=== PATIENT | female | born 1970 | race Caucasian/White ===

== ENCOUNTER 2018-11-08 08:55 | Emergency (ER) | payer BC ==
[2018-11-08 09:24] LABS: EOS # 0.1 (0.04-0.40); EOS % 0.9 % (1.0-5.0); HEMATOCRIT 39.1 % (37.0-47.0); HEMOGLOBIN 13.1 g/dL (12.5-16.0); LYMPH# 1.6 (1.50-4.00); MEAN CELL VOLUME 96 fl (78-100); MEAN CORPUSCULAR HEMOGLOBIN 32 pg (27-31); MEAN CORPUSCULAR HGB CONC 34 g/dL (33-37); MEAN PLATELET VOLUME 11.8 fl (7.4-10.4); MONO # 0.4 (0.20-0.80); NEU # 3.2 (1.40-6.50); PLATELET COUNT 193 K/mm3 (130-400); RED BLOOD COUNT 4.09 M/mm3 (4.10-5.30); RED CELL DISTRIBUTION WIDTH 13.7 % (11.5-14.5); WHITE BLOOD COUNT 5.3 K/mm3 (4.8-10.8)
[2018-11-08 09:34] LABS: ALBUMIN 3.9 g/dL (3.5-5.0)
[2018-11-08 09:35] LABS: POTASSIUM 3.2 mmol/L (3.5-5.1)
[2018-11-08 09:36] LABS: CALCIUM 9.2 mg/dL (8.3-10.5)
[2018-11-08 09:37] LABS: TOTAL PROTEIN 6.8 g/dL (6.4-8.3)
[2018-11-08 09:39] LABS: TOTAL BILIRUBIN 0.5 mg/dL (0.2-1.2)
[2018-11-08 10:00] LABS: URINE APPEARANCE CLEAR; URINE BILIRUBIN NEGATIVE (NEGATIVE); URINE BLOOD NEGATIVE (NEGATIVE); URINE COLOR YELLOW; URINE GLUCOSE NEGATIVE (NEGATIVE); URINE KETONE 1+ (NEGATIVE); URINE LEUKOCYTE ESTERASE TRACE (NEGATIVE); URINE MUCUS PRESENT (NOT PRESENT); URINE NITRATE NEGATIVE (NEGATIVE); URINE PROTEIN(semi-quant) TRACE mg/dL (NEGATIVE); URINE UROBILINOGEN NORMAL (NORMAL)
[2018-11-08] MEDS ORDERED: CIPRO500 M1 PO (11:49)
[2018-11-08 12:24] VITALS: BP 102/60
== END 2018-11-08 12:24 | disposition home or self-care (01) ==
LOC: ED 08:55
PROVIDERS: Nurse Practitioner Primary Care
DX: N30.00 Acute cystitis without hematuria (principal); G47.30 Sleep apnea, unspecified; Z88.5 Allergy status to narcotic agent